=== PATIENT | female | born 1955 | race Caucasian/White ===

== ENCOUNTER 2025-03-22 09:58 | Outpatient (CLI) | payer BC, SELFPAY ==
[2025-03-22] VITALS (7 sets, daily range): BP systolic 130–159; BP diastolic 58–73; PULSE 68–74; RESP 8–18; TEMP 36.1; O2SAT 96–100
--- NOTE | 2025-03-22 06:00 | DI.RAD_ITS ---
Exam(s) XR PAIN CLINIC LUMBAR SP 2V EXAM: XR PAIN CLINIC LUMBAR SP 2V CLINICAL HISTORY: DX: Lumbar Spondylosis. TECHNIQUE: Fluoroscopy was provided for the referring physician for guidance with performing pain clinic injection procedure. COMPARISON: No exams were available for comparison FINDINGS: Please see procedure note for details. Fluoro time: 54.8 seconds RADIATION DOSE DELIVERED: clarence Sage=23.62 mGy
[2025-03-22] MEDS: Bupivacaine 0.5% Pres-Free 10 ML VIAL IJ (11:00)
[2025-03-22] MEDS: Omnipaque 240 MG/ML 50 ML BTL IJ (11:00)
[2025-03-22] MEDS: Nerve Block Tray 1 EACH MC (11:00)
--- NOTE | 2025-03-31 07:25 | PDOC.PAIN ---
Date of service: 03/22/25 Time of Service: 12:00 Pain Managment Procedure Note Procedure Note Procedure Note: PROCEDURE NOTE Bilateral Lumbar Medial Branch Blocks Date of Service: March 22, 2025 Patient: Janie Gamez Provider: Nas Pelayo DO, MPH Janie Gamez has been [facility] to [facility] for lumbar medial branch blocks. Pre-operative diagnosis: Lumbar Spondylosis without Myelopathy ICD-10 M47.816 Post-operative diagnosis: Same Pre-procedure pain: VAS= 7/10 COMMENTS: I previously evaluated her in the office. Symptoms are unchanged. Rafy was interviewed and the medical records were reviewed. There were no medical, pharmacologic, radiographic or other structural contraindications to attempting fluoroscopically guided local anesthetic lumbar medial branch blocks. Risks and potential side effects were discussed. I also discussed the potential benefit(s) of the procedure with Janie, and voiced concerns were addressed. After Janie was completely informed about the procedure, the printed consent form was signed. A standard time-out procedure was performed. Janie was placed in the prone position on the fluoroscopy table. Automated blood pressure cuff and pulse oximeter were applied. The skin entry points for approaching the anatomic target points of the segmental medial branches of bilateral L3,L4,L5 were identified with fluoroscopy and marked. The skin at the target site area was thoroughly prepared with Chlorhexadine. The skin was then draped. Next, a 25 gauge 3.5 spinal needle was placed under fluoroscopic guidance down on to the target point (the articular pillar) for each respective segmental medial branch. Position was confirmed in A/P and lateral views. Aspiration revealed no blood or clear fluid. Next, 0.25ml of omnipaque 240 was injected at each level. No contrast following a vascular or neural pattern was visualized under continuous fluoroscopy. Next, 0.25 ml of preservative-free 0.5% bupivicaine was injected at each level. There was no unusual discomfort expressed by Janie. The needles were withdrawn without difficulty. (49 mls of Omnipaque was wasted) Janie was observed and was without hemodynamic, neurologic, or allergic reactions.? Fluoroscopic images were digitally archived. Provacative testing using the Modified Moore's facet loading test- Left side Right Side Directly before the block VAS (0-10) = 7/10 VAS (0-10) = 7/10 Five minutes after the block VAS (0-10) = 3/10 VAS (0-10) = 3/10 Percentage relief obtained with this diagnostic block 60% 60% Any improved physical functioning directly after the blocks? Able to move her back much easier Follow up plans and appointments were discussed with Janie. Janie was instructed to keep careful note of how the usual pain was modified by these injections. Specifically, to keep a pain diary for the next 4 hours using a numeric pain scale of 0-10 and report these results. Post procedure instruction was given as documented in the nursing documentation and having met discharge criteria, the patient was [facility] from the [facility]. Based on the medial branches blocked today, if they patient has adequate relief and we are able to proceed to radiofrequency ablation, the treatment should result in the denervation of the bilateral L4-L5 and L5-S1 facet joints. We would expect to denervate a total of 4 facets during the radiofrequency ablation. COMMENTS: No apparent complications. Post-procedure pain: VAS= 3/10 Janie will call back with 0-4 hour post-procedure pain scores. I personally performed the entire procedure. NAS PELAYO DO, MPH ABPM&R-subspecialty board certification in Pain Medicine [facility] Coding Conscious Sedation used for procedure: No CPT Codes: LMBB (includes Fluoro) Lumbar/Sacral, 2nd lvl - 88012 ([id number] ~G) LMBB (includes Fluoro) Lumbar/Sacral, single lvl *BILATERAL* - [id number] ([id number]~G5) Additional Codes: Date of Service (27810) Date of service: 03/22/25 Diagnoses: Lumbosacral spondylosis without myelopathy
== END 2025-03-22 09:59 | disposition home or self-care (01) ==
LOC: PC 09:58
PROVIDERS: PCP Physician Assistant; Visit Provider Preventive Medicine Occupational Medicine
DX: M47.816 Spondylosis without myelopathy or radiculopathy, lumbar region (principal)
CPT/HCPCS: 64493; 64494; 72100; J0665; Q9967

== ENCOUNTER 2025-04-05 07:27 | Outpatient (CLI) | payer BC, SELFPAY ==
[2025-04-05 07:41] VITALS: BP 105/54; PULSE 82; RESP 18; TEMP 36; O2SAT 98
[2025-04-05 08:15] VITALS: PULSE 81; O2SAT 97
[2025-04-05 08:17] VITALS: BP 128/59; PULSE 66; RESP 18; O2SAT 96
[2025-04-05 08:20] VITALS: PULSE 68; RESP 17; O2SAT 96
[2025-04-05 08:30] VITALS: BP 133/67; PULSE 66; PULSE 67; RESP 15; O2SAT 96
[2025-04-05 08:31] VITALS: PULSE 66; RESP 15; O2SAT 96
[2025-04-05] MEDS: Nerve Block Tray 1 EACH MC (08:36)
[2025-04-05] MEDS: Omnipaque 240 MG/ML 50 ML BTL IJ (08:36)
--- NOTE | 2025-04-05 08:36 | PDOC.PAIN ---
Date of service: 04/05/25 Time of Service: 08:36 Pain Managment Procedure Note Procedure Note Procedure Note: PROCEDURE NOTE Bilateral Lumbar Medial Branch Blocks Date of Service: April 05, 2025 Patient: Janie Gamez Provider: Nas Pelayo DO, MPH Janie Gamez has been referred to the [facility] for lumbar medial branch blocks. Pre-operative diagnosis: Lumbar Spondylosis without Myelopathy ICD-10 M47.816 Post-operative diagnosis: Same Pre-procedure pain: VAS= 7/10 COMMENTS: She did very well with her first LMBB Janie? was interviewed and the medical records were reviewed. There were no medical, pharmacologic, radiographic or other structural contraindications to attempting fluoroscopically guided local anesthetic lumbar medial branch blocks. Risks and potential side effects were discussed. I also discussed the potential benefit(s) of the procedure with Janie, and voiced concerns were addressed. After Janie was completely informed about the procedure, the printed consent form was signed. A standard time-out procedure was performed. Janie was placed in the prone position on the fluoroscopy table. Automated blood pressure cuff and pulse oximeter were applied. The skin entry points for approaching the anatomic target points of the segmental medial branches of bilateral L3,L4,L5 were identified with fluoroscopy and marked. The skin at the target site area was thoroughly prepared with Chlorhexadine. The skin was then draped. Next, a 25 gauge 3.5 spinal needle was placed under fluoroscopic guidance down on to the target point (the articular pillar) for each respective segmental medial branch. Position was confirmed in A/P and lateral views. Aspiration revealed no blood or clear fluid. Next, 0.25ml of omnipaque 240 was injected at each level. No contrast following a vascular or neural pattern was visualized under continuous fluoroscopy. Next, 0.25 ml of preservative-free 0.5% bupivicaine was injected at each level. There was no unusual discomfort expressed by Janie. The needles were withdrawn without difficulty. (49 mls of Omnipaque was wasted) Janie was observed and was without hemodynamic, neurologic, or allergic reactions.? Fluoroscopic images were digitally archived. Provacative testing using the Modified Moore's facet loading test- Left side Right Side Directly before the block VAS (0-10) = 7/10 VAS (0-10) = 7/10 Five minutes after the block VAS (0-10) = 0/10 VAS (0-10) = 0/10 Percentage relief obtained with this diagnostic block 100% 100% Any improved physical functioning directly after the blocks? Able to move her low back without pain. Follow up plans and appointments were discussed with Janie. Janie was instructed to keep careful note of how the usual pain was modified by these injections. Specifically, to keep a pain diary for the next 4 hours using a numeric pain scale of 0-10 and report these results. Post procedure instruction was given as documented in the nursing documentation and having met discharge criteria, the patient was discharged from the [facility]. Based on the medial branches blocked today, if they patient has adequate relief and we are able to proceed to radiofrequency ablation, the treatment should result in the denervation of the bilateral L4-L5 and L5-S1 facet joints. We would expect to denervate a total of 4 facets during the radiofrequency ablation. COMMENTS: No apparent complications. Post-procedure pain: VAS= 0/10 Janie will call back with 0-4 hour post-procedure pain scores. I personally performed the entire procedure. NAS PELAYO DO, MPH ABPM&R-subspecialty board certification in Pain Medicine [facility] Coding Conscious Sedation used for procedure: No CPT Codes: LMBB (includes Fluoro) Lumbar/Sacral, 2nd lvl - 18097 ([id number] ~G) LMBB (includes Fluoro) Lumbar/Sacral, single lvl *BILATERAL* - [id number] ([id number]~G5) Additional Codes: Date of Service (60510) Date of service: 04/05/25 Diagnoses: lumbar spondylosis without myelopathy
[2025-04-05] MEDS: Bupivacaine 0.5% Pres-Free 10 ML VIAL IJ (08:37)
--- NOTE | 2025-04-05 08:40 | DI.RAD_ITS ---
Exam(s) XR PAIN CLINIC LUMBAR SP 2V EXAM: XR PAIN CLINIC LUMBAR SP 2V CLINICAL HISTORY: DX: Lumbar Spondylosis TECHNIQUE: 2D and realtime digital imaging was performed. CONTRAST MATERIAL: Refer to procedure report. COMPARISON: No exams were available for comparison FINDINGS: Fluoroscopy was provided for Dr. Pelayo during the performance of a bilateral lumbar medial branch block. Please refer to the procedure report for complete details. Ka,r=17.5 mGy IMPRESSION: RADIATION DOSE DELIVERED: 0.0 0.0 0
== END 2025-04-05 07:28 | disposition home or self-care (01) ==
LOC: PC 07:29
PROVIDERS: PCP Physician Assistant; Visit Provider Preventive Medicine Occupational Medicine
DX: M47.816 Spondylosis without myelopathy or radiculopathy, lumbar region (principal)
CPT/HCPCS: 64493; 64494; 72100; J0665; Q9967

== ENCOUNTER 2025-06-28 13:51 | Outpatient (CLI) | payer BC, SELFPAY ==
--- NOTE | 2025-06-28 06:00 | DI.RAD_ITS ---
Exam(s) XR PAIN CLINIC SACRIOILIAC 2V EXAM: XR PAIN CLINIC SACRIOILIAC 2V CLINICAL HISTORY: DX: Sacroiliac Dysfunction TECHNIQUE: 2D and realtime digital imaging was performed. CONTRAST MATERIAL: Refer to procedure report. COMPARISON: No exams were available for comparison FINDINGS: Fluoroscopy was provided for Dr. Pelayo during the performance of a bilateral sacroiliac joint injection. Please refer to the procedure report for complete details. Ka,r=5.5 mGy IMPRESSION: RADIATION DOSE DELIVERED: 0.0 0.0 0
[2025-06-28 14:20] VITALS: BP 132/76; PULSE 87; RESP 18; TEMP 36; O2SAT 96
[2025-06-28 15:35] VITALS: PULSE 76; PULSE 92; O2SAT 98
[2025-06-28 15:36] VITALS: BP 201/83; PULSE 79; RESP 20; O2SAT 99
[2025-06-28 15:40] VITALS: PULSE 79; PULSE 80; RESP 20; O2SAT 100
[2025-06-28 15:47] VITALS: BP 179/84; PULSE 76
[2025-06-28] MEDS: Nerve Block Tray 1 EACH MC (15:51)
[2025-06-28] MEDS: methylPREDNISolone ACETATE 40 MG/ML VIAL IJ (15:51)
--- NOTE | 2025-07-03 12:50 | PDOC.PAIN_ITS ---
Date of service: 06/28/25 Time of Service: 16:00 Pain Managment Procedure Note Procedure Note Procedure Note: PROCEDURE NOTE BILATERAL INTRA-ARTICULAR SACROILIAC JOINT INJECTION Date of Service: June 28, 2025 Patient: Janie Gamez Provider: Nas Pelayo DO, MPH COMMENTS: I previously evaluated the patient in the office and their symptoms in relation to the sacroiliac joint pain have remained the same. Questionable allergy to iodine contrast, thus iodine contrast will not be used for this procedure - discussed with patient. Pre-operative diagnosis: Sacroiliac joint dysfunction ICD-10 M53.3 Post-operative diagnosis: Same Pre-procedure pain: VAS= 6/10 Janie Gamez has been referred to our [facility] for a Bilateral intra-articular Sacroiliac joint injection. Janie was interviewed and the medical record reviewed. There were no medical, pharmacologic, radiographic or other structural contraindications to attempting a fluoroscopically-guided, intra-articular Sacroiliac joint injection. The risks, benefits, and potential side effects of this procedure were reviewed with the patient. Questions and concerns were addressed. After it was clear that Janie was fully informed about the procedure, the printed consent form was signed by the patient and myself. Janie was placed in the prone position on the fluoroscopy table and an automated blood pressure cuff, 3 lead EKG, and pulse oximeter were applied. The skin entry point for approaching the Left sacroiliac joint was identified under the most advantageous fluoroscopic view and marked. Following thorough Chlorhexadine preparation of the skin and draping with sterile surgical drapes, 2 mls of 1% lidocaine was infiltrated into the skin at the entry point and the surrounding subcutaneous tissues. Next, a 3.5 22G spinal needle was placed under fluoroscopic guidance into the Left sacroiliac joint. Next, 1 ml of Depo- Medrol 40 mg/ml was injected intra-articularly with an initial reproduction of a significant component of the usual pain. This was followed with 1 ml of 1% Lidocaine. The needle was then removed without difficulty. (49 ml of Omnipaque- 240 was wasted). The exact procedure was completed on the opposite sacroiliac joint. Janie's vital signs were stable throughout the procedure and were as recorded in nursing records. Follow up plans and appointments were discussed with Janie. Post procedure instructions were given as documented in nursing records. Having met discharge criteria, Janie was discharged from the [facility]. COMMENTS: Post-procedure pain: VAS= 0/10. If the patient receives at least 50% improvement in pain and/or function for at least 3 months, this procedure can be repeated if needed. I personally performed this entire procedure. NAS PELAYO DO, MPH ABPMR-subspecialty board certification in Pain Medicine [facility] Coding Conscious Sedation used for procedure: No CPT Codes: SI Joint Inj; incl Fluoro * BILATERAL* - [id number] ([id number]~G5) Additional Codes: Date of Service () Diagnoses: sacroiliac joint dysfunction
== END 2025-06-28 13:52 | disposition home or self-care (01) ==
LOC: PC 13:51
PROVIDERS: PCP Physician Assistant; Visit Provider Preventive Medicine Occupational Medicine
DX: M54.50 Low back pain, unspecified (principal); M53.3 Sacrococcygeal disorders, not elsewhere classified
CPT/HCPCS: 27096; 72200; J1010